=== PATIENT | female | born 1930 | race Two or more races ===

== ENCOUNTER 2017-04-28 02:11 | Inpatient (IN) | payer MEDICARE, OTHER ==
[~2017-04-28] VITALS: Ht 157.5 cm; Wt 46.3 kg
--- NOTE | 2017-04-28 02:15 | NUR ---
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 PER RA, ALBUTEROL GIVEN WITH RELIEF. UPON ARRIVAL TO ER, PATIENT IS ALERT, RESPONSIVE, MILD WHEEZING ON [place] LUNGS HEARD, SATTING AT 88-89% ON ROOM AIR. KEPT HOB ELEVATED. TELE MONITORING ON. ENCOURAGED DEEP BREATHING EXERCISES. HX OF COPD. GOWNED. INITIATED COMFORT MEASURES. DR CARREON AT BEDSIDE FOR EVAL.
[2017-04-28] MEDS ORDERED: ALBUTEROL FS 2.5 MG/3 ML VIAL.NEB NEB ONE (02:30)
[2017-04-28] MEDS ORDERED: IPRATROPIUM NEB FS 0.5 MG/2.5 ML AMPUL.NEB NEB ONE (02:30)
[2017-04-28] MEDS ORDERED: MAGN800O PO (02:34)
[2017-04-28] MEDS ORDERED: FERR-58 PO (02:34)
[2017-04-28] MEDS ORDERED: FLUD0.1T PO (02:34)
[2017-04-28] MEDS ORDERED: GUAI100S4 PO (02:34)
[2017-04-28] MEDS ORDERED: FURO20TA4 PO (02:34)
[2017-04-28] MEDS ORDERED: ACET-2067 PO (02:34)
[2017-04-28] MEDS ORDERED: FENO145T20 PO (02:34)
[2017-04-28] MEDS ORDERED: UMEC62.5 IH (02:34)
[2017-04-28] MEDS ORDERED: POTA10CA43 PO (02:34)
[2017-04-28] MEDS ORDERED: ESOM40CA PO (02:34)
[2017-04-28] MEDS ORDERED: METO-302 PO (02:34)
[2017-04-28] MEDS ORDERED: ALBU18HF2 INH (02:34)
[2017-04-28] MEDS ORDERED: IPRATROPIUM NEB FS 0.5 MG/2.5 ML AMPUL.NEB ONE (02:37)
[2017-04-28] MEDS ORDERED: ALBUTEROL FS 2.5 MG/3 ML VIAL.NEB ONE (02:37)
[2017-04-28 02:43] LABS: BASOPHILS # (AUTO) 0.1 /CMM (0.0-0.2); BASOPHILS % (AUTO) 0.7 % (0.0-2.0); EOSINOPHILS # (AUTO) 0.7 /CMM (0.0-0.7); HEMATOCRIT 45 % (33-45); HEMOGLOBIN 14.8 g/dL (11.5-14.8); LYMPHOCYTES # (AUTO) 2.2 /CMM (0.8-4.8); LYMPHOCYTES % (AUTO) 28.7 % (20.0-44.0); MEAN CORPUSCULAR HEMOGLOBIN 30 PG (26.0-33.0); MEAN CORPUSCULAR HGB CONC 33 g/dl (31.0-36.0); MEAN CORPUSCULAR VOLUME 93 fL (82-100); MONOCYTES # (AUTO) 0.7 /CMM (0.1-1.30); MONOCYTES % (AUTO) 9.4 % (2.0-12.0); NEUTROPHILS # (AUTO) 3.9 /CMM (1.8-8.9); NEUTROPHILS % (AUTO) 52.2 % (43.0-81.0); PLATELET COUNT (AUTO) 325 /CMM (150-450); RDW COEFFICIENT OF VARIATION 13.8 (11.5-15.0); RED BLOOD CELL COUNT(AUTO) 4.88 MIL/uL (4.0-5.2); WHITE BLOOD COUNT (AUTO) 7.6 K/uL (4.3-11.0)
--- NOTE | 2017-04-28 02:44 | NUR ---
RT AT BEDSIDE FOR BREATHING TX
--- NOTE | 2017-04-28 02:50 | NUR ---
JAVASCRIPT ENGINEER AT BEDSIDE FOR CXR.
[2017-04-28 02:53] LABS: CALCIUM, SERUM 9.5 mg/dL (8.5-10.1); CARBON DIOXIDE 31 mmol/L (21-32); CHLORIDE 101 mmol/L (98-107); GLUCOSE 100 mg/dL (74-106); POTASSIUM 3.6 mmol/L (3.5-5.1); SODIUM SERUM 140 mmol/L (136-145); UREA NITROGEN, BLOOD 25 mg/dL (7-18)
[2017-04-28 03:00] LABS: TROPONIN I 0.019 ng/mL (0.00-0.056)
[2017-04-28 03:05] LABS: ALANINE AMINOTRANSFERASE 15 U/L (12-78); ALBUMIN 3.5 g/dL (3.4-5.0); ALKALINE PHOSPHATASE 68 U/L (46-116); ASPARTATE AMINOTRANSFERASE 16 U/L (15-37); B-TYPE NATRIURETIC PEPTIDE 671 PG/ML (0-125); BILIRUBIN,DIRECT 0.1 mg/dL (0.0-0.2); BILIRUBIN,TOTAL 0.4 mg/dL (0.2-1.0); TOTAL PROTEIN, SERUM 7.4 g/dL (6.4-8.2)
[2017-04-28] MEDS ORDERED: ETOMIDATE 2 MG/ML VIAL ONE (03:37)
--- NOTE | 2017-04-28 03:49 | NUR ---
DR. CARREON AT BEDSIDE FOR LEFT CHEST TUBE PLACEMENT. RT AT BEDSIDE.
[2017-04-28] MEDS ORDERED: CEFAZOLIN 1 GM in IV D5W 50 ML IV ONE (04:00)
[2017-04-28] MEDS ORDERED: ONDANSETRON HCL/PF - ER 4 MG/2 ML VIAL IV ONE (04:00)
[2017-04-28] MEDS ORDERED: HYDROMORPHONE 1 MG/1 ML DISP.SYRIN IV ONE (04:00)
[2017-04-28] MEDS ORDERED: CEFAZOLIN 1 GM ONE (04:01)
[2017-04-28] MEDS ORDERED: IV SET PRIMARY PUMP SET 1 EA INFUS.SET MC ONE ×2 (04:01→15:59)
[2017-04-28] MEDS ORDERED: HYDROMORPHONE 1 MG/1 ML DISP.SYRIN ONE (04:01)
[2017-04-28] MEDS ORDERED: ONDANSETRON HCL/PF 4 MG/2 ML VIAL ONE (04:01)
--- NOTE | 2017-04-28 04:02 | NUR ---
PER DR. CARREON INSERTED LEFT CHEST TUBE. PT TOLERATED WELL. Addendum: 04/28/17 at 0419 by ZOË PER DR. CARREON INSERTED 20G LEFT SIDE CHEST TUBE
--- NOTE | 2017-04-28 04:03 | NUR ---
RT AT BEDSIDE FOR ABG.
--- NOTE | 2017-04-28 04:04 | NUR ---
PT ASSIGNED FOR ALISTAIR [id number]
--- NOTE | 2017-04-28 04:07 | NUR ---
dr emely raymond
--- NOTE | 2017-04-28 04:07 | NUR ---
CALLED RADIOLOGY FOR STAT CHEST XRAY
[2017-04-28] MEDS ORDERED: IV D5W 50 ML IV ONE (04:09)
[2017-04-28 04:11] LABS: ABG BASE EXCESS 2.8 mmol/L; ABG OXYGEN SATURATION 98.9 % (92.0-98.5); ABG PCO2 58.6 mmHg (35.0-45.0); ABG PH 7.332 (7.350-7.450); AaDO2 43.9 mmHg; COHb 2.9 % (0.5-1.5); MetHb 0.3 % (0.0-1.5); O2Hb 95.7 % (94.0-97.0); SITE, ABG Right Radial; VENT MODE, BG NRB
--- NOTE | 2017-04-28 04:12 | NUR ---
XRAY AT BEDSIDE.
--- NOTE | 2017-04-28 04:12 | NUR ---
WASTED REMAINING ETOMIDATE 5MG WITH HILDA CHINCHILLA
--- NOTE | 2017-04-28 04:15 | NUR ---
cxr at bedside.
--- NOTE | 2017-04-28 04:15 | NUR ---
0350 - etomidate 5mg ivp given pre chest tube placement under moderate sedation by Dr Weir at bedside. Ongoing tele and vs monitoring. safety maintained. kept hob of elevated, RT Rodrick at bedside. Patient was placed on 15lpm nonrebreather, ceasar well. 0351- another etomidate 5mg ivp given per Dr Weir's verbal order. 0357- last etomidate 5mg ivp given for a total of 15mg per Dr Weir verbal order. 0402 - chest tube placed on the left lateral wall inserted by Dr Weir, syriac 20, connected to water seal cannister and suction, dressing placed, no leaks noted. 0410 - patient woke up, vss. Reoriented. placed on 2lpm o2 nc, ceasar well. ongoing vs monitoring.
[2017-04-28] MEDS ORDERED: HYDROCODONE/APAP 5/325MG 1 EACH TABLET PO PRN (04:30)
[2017-04-28] MEDS ORDERED: ONDANSETRON HCL/PF 4 MG/2 ML VIAL IVP PRN (04:30)
[2017-04-28] MEDS ORDERED: Z GUARD REMEDY 2 OZ OINT TP PRN (04:30)
[2017-04-28] MEDS ORDERED: GUAIFENESIN 300 MG/15 ML UDC PO PRN (04:30)
[2017-04-28] MEDS ORDERED: ACETAMINOPHEN 325 MG TABLET PO PRN (04:30)
[2017-04-28] MEDS ORDERED: MAGNESIUM HYDROXIDE 30 ML UDC PO PRN (04:30)
[2017-04-28] MEDS ORDERED: MAG HYDROX/AL HYDROX/SIMETH 30 ML UDC PO PRN (04:30)
--- NOTE | 2017-04-28 04:35 | NUR ---
PT ASSIGNED TO [place] [id number]
--- NOTE | 2017-04-28 04:40 | NUR ---
Report given to Layla STEVENS for nusrat admission and niles.
[2017-04-28 05:49] VITALS: BP 139/64
--- NOTE | 2017-04-28 07:08 | NUR ---
PT ADMITTED FROM ER WITH THE DX OF PNEUMOTHORAX VIA NICKY @ 4005 . PT IS A/O X 2 , FORGETFULNESS , DEMENTIC , BREATHING UNLABORED ON 3 LPM VIA NC . SHOWING SR WITH 1 DEGREE AV BLOCK AND BBB ON TELE MONITOR . LFA AND RFA 18 G INTACT AND PATENT . PT IS INCONTINENT , BED IN THE LOWEST/LOCKED POSITION. SAFETY MEASURES APPLIED. ALL ADMISSION ASSESSMENT DONE . SKIN ASSESSMENT DONE , BELONGINGS CHECKED. DENIED ANY PAIN AT THIS TIME . ENDORSED TO NEXT SHIFT RN FOR CONTINUITY OF CARE.
--- NOTE | 2017-04-28 07:30 | NUR ---
RN NOTES RECEIVED PT IN BED, ON UPRIGHT SITTING POSITION. PT IS ON O2@3LPM VIA NC AT THIS TIME. PT IS AWAKE ALERT ORIENTED TO NAME, NOTED WITH SOME CONFUSION AND FORGETFULNESS. SR WITH 1ST DEGREE AV BLOCK ON TELE MONITOR. PT HAS LEFT CHEST WATER SEAL CHEST TUBE NOTED WITH MINIMAL AMOUNT OF REDDISH COLOR DRAINAGE, ON CONTINUOS SUCTION AT 80MMHG. PTY NOTED PULLED OUT HER LEFT FA IV SITE, CLEAN DRESSING APPLIED. IV PATENT ON R FA, FLUSHED WITH S, PATENT. SAFETY MAINTAINED. FREQUENT VISUAL CHECKS MADE. NEEDS ATTENDED. CALL LIGHT WITHIN REAC.H
[2017-04-28 08:00] VITALS: BP 142/75
[2017-04-28] MEDS: FENOFIBRATE NANOCRYS (145 MG) 145 MG TABLET PO SCH (08:48)
[2017-04-28] MEDS ORDERED: FLUDROCORTISONE 0.1 MG TABLET PO SCH (09:00)
[2017-04-28] MEDS ORDERED: POTASSIUM CHLORIDE 10 MEQ TABLET.SA PO SCH (09:00)
[2017-04-28] MEDS ORDERED: FUROSEMIDE 20 MG TABLET PO SCH (09:00)
[2017-04-28] MEDS ORDERED: FERROUS SULFATE (325 MG) 325 MG/TAB TABLET PO SCH (09:00)
[2017-04-28] MEDS ORDERED: METOPROLOL SUCCINATE 25 MG TAB.SR.24H PO SCH (09:00)
[2017-04-28] MEDS ORDERED: IV NS 0.9% 1,000 ML IV PRN (10:53)
[2017-04-28 12:00] VITALS: BP 134/65
--- NOTE | 2017-04-28 12:15 | NUR ---
RN NOTES PT IN BED, UPRIGHT SITTING POSITION. PT VERBALIZED HAVING TROUBLE BREATHING. O2 SAT NOTED 85-87% ON O2 @3LPM VIA NC. CHECKED CHEST TUBE FOR ANY KINKS IR LEAKS, NONE NOTED. DR WALTERS MADE AWARE OF CURRENT PT'S CONDITION, PER MD TO PUT PT ON O2 VIA SIMPLE MASK AND ORDER STAT CXR.
[2017-04-28] MEDS ORDERED: methylPREDNISolone SOD SUCC 40 MG/ML VIAL IV STA (12:20)
[2017-04-28] MEDS: ALBUTEROL FS 2.5 MG/3 ML VIAL.NEB NEB PRN ×2 (12:25→22:41)
--- NOTE | 2017-04-28 12:30 | NUR ---
RN NOTES DR WALTERS AT BEDSIDE, PT WAS SEEN AND EVALUATED. PT STILL VERBALIZING OF TROUBLE BREATHING, PER MD TO GIVE BREATHING TX NOW ALBUTEROL AND ATROVENT. AND SOLUMEDROL 40MG NOW. RT AT BEDSIDE
[2017-04-28 16:00] VITALS: BP 118/63
--- NOTE | 2017-04-28 19:30 | NUR ---
RN NOTES RECEIVED PT AOX 2 WITH CONFUSION AND EASILY FORGET.. ABLE TO MAKE KNOWN NEEDS. DENIES PAIN AT THIS TIME. AFEBRILE. NO ACUTE RESP DISTRESS TOLERATED O2 3LPM VIA NC AND LEFT LATERAL CHEST TUBE SUCTIONED @ 80MMHG FROM WATER SEAL WITH REDDISH COLOR DRAINAGE INTACT, KEPT VISIBLE AND PATENT COVERED WITH DRESSING. IV SITE ON RFA G18 INTACT AND PATENT/ PLAN OF CARE PROVIDED. KEPT PT CLEAN AND COMFORTABLE IN BED. WILL MONITORED FREQ.
[2017-04-28 20:00] VITALS: BP 108/61
--- NOTE | 2017-04-28 22:56 | NUR ---
RN NOTES PT HAD EPISODE OF DESATURATION TO 85% PT COMPALINING OF PAIN ON CHEST TUBE AREA NON REBREATHER MASK PLACED PT SATURATION STARTED TO INCREASED AND SUBSIDING SOB. RT GAVE PRN BREATHING TX. AND DR. LYNN ON THE FLOOR INFORMED WITH ORDER ATROVENT AND ALBUTEROL Q4H PRN. PT SATURATION STABLE NOW @ 97%. WILL MONITORED FREQ.
[2017-04-28] MEDS: ZOLPIDEM TARTRATE 5 MG TABLET PO PRN (23:20)
[2017-04-29] VITALS: BP 105/68
[2017-04-29 04:00] VITALS: BP 134/65
[2017-04-29 06:56] LABS: TROPONIN I 0.024 ng/mL (0.00-0.056)
[2017-04-29 06:58] LABS: BASOPHILS % (AUTO) 0.2 % (0.0-2.0); EOSINOPHILS # (AUTO) 0.2 /CMM (0.0-0.7); EOSINOPHILS % (AUTO) 2.7 % (0.0-6.0); HEMATOCRIT 41 % (33-45); HEMOGLOBIN 13.4 g/dL (11.5-14.8); LYMPHOCYTES # (AUTO) 1.8 /CMM (0.8-4.8); LYMPHOCYTES % (AUTO) 24.3 % (20.0-44.0); MEAN CORPUSCULAR HEMOGLOBIN 31 PG (26.0-33.0); MEAN CORPUSCULAR HGB CONC 33 g/dl (31.0-36.0); MEAN CORPUSCULAR VOLUME 93 fL (82-100); MONOCYTES # (AUTO) 0.9 /CMM (0.1-1.30); MONOCYTES % (AUTO) 12.3 % (2.0-12.0); NEUTROPHILS # (AUTO) 4.5 /CMM (1.8-8.9); NEUTROPHILS % (AUTO) 60.5 % (43.0-81.0); PLATELET COUNT (AUTO) 305 /CMM (150-450); RDW COEFFICIENT OF VARIATION 13.5 (11.5-15.0); RED BLOOD CELL COUNT(AUTO) 4.36 MIL/uL (4.0-5.2); WHITE BLOOD COUNT (AUTO) 7.4 K/uL (4.3-11.0)
[2017-04-29 07:01] LABS: ALANINE AMINOTRANSFERASE 12 U/L (12-78); ALBUMIN 2.9 g/dL (3.4-5.0); ALKALINE PHOSPHATASE 49 U/L (46-116); ASPARTATE AMINOTRANSFERASE 17 U/L (15-37); BILIRUBIN,TOTAL 0.4 mg/dL (0.2-1.0); CALCIUM, SERUM 9.3 mg/dL (8.5-10.1); CARBON DIOXIDE 35 mmol/L (21-32); CHLORIDE 103 mmol/L (98-107); CREATININE 0.8 mg/dL (0.6-1.3); GLUCOSE 86 mg/dL (74-106); MAGNESIUM 1.6 mg/dL (1.8-2.4); PHOSPHORUS 3.4 mg/dL (2.5-4.9); POTASSIUM 3.9 mmol/L (3.5-5.1); SODIUM SERUM 141 mmol/L (136-145); TOTAL PROTEIN, SERUM 6.5 g/dL (6.4-8.2); UREA NITROGEN, BLOOD 21 mg/dL (7-18)
--- NOTE | 2017-04-29 07:01 | NUR ---
RN NOTES PT NOTED WITH EPISODE OF ANXIETY WHEN AWAKE. RESTLESSNESS AND DESATURATING SHOWS. NON REBREATHER MASK 15LPM VIA NC EFFECTIVE, PT STARTED TO CALM DOWN AND PLACED BACK AGAIN TO O2 3LPM VIA NC TOLERATED WELL FOR AWHILE BUT STARTED TO DESAT AGAIN KEPT NON REBREATHER MASK ON @ 10 LPM SATING 95%. PT IS ON UPRIGHT POSITION FOR COMFORTABLE. CHEST TUBE DRAINED WITH REDDISH COLOR 15 CC THROUGHOUT THE SHIFT. WILL ENDORSED CONTINUITY OF CARE TO AM NURSE.
[2017-04-29 07:05] LABS: CHOLESTEROL 148 mg/dL (<200); HDL CHOLESTEROL 50 mg/dL (40-60); TRIGLYCERIDES 52 mg/dL (30-150)
[2017-04-29 07:18] LABS: LDL 80 mg/dL (0-99)
[2017-04-29] MEDS: ALBUTEROL FS 2.5 MG/0.5 ML VIAL.NEB NEB PRN (07:38)
[2017-04-29] MEDS: IPRATROPIUM NEB FS 0.5 MG/2.5 ML AMPUL.NEB NEB PRN (07:38)
[2017-04-29 08:00] VITALS: BP 141/68
--- NOTE | 2017-04-29 09:20 | NUR ---
RN NOTES PT NOTED WITH C/O SHORTNESS OF BREATH, CURRENTLY ON O2@3LPM VIA NC SATING 85%, PUT PT ON SIMPLE MASK 6LPM STILL SATING 85%, PLACED ON NRB 15LPM SATING 88%. REPORTED TO DR ELLIS, PER STAT ABG AND NOTIFY DR SHELTON
[2017-04-29] MEDS: PANTOPRAZOLE 40 MG TABLET.DR PO SCH (09:36)
[2017-04-29] MEDS: Magnesium 1GM/D5W 100ML PREMIX 100 ML IV SCH ×2 (09:36→11:32)
[2017-04-29] MEDS: FENOFIBRATE NANOCRYS (145 MG) 145 MG TABLET PO SCH (09:36)
[2017-04-29 10:01] LABS: ABG BASE EXCESS 4.7 mmol/L; ABG OXYGEN SATURATION 97.7 % (92.0-98.5); ABG PCO2 52.6 mmHg (35.0-45.0); ABG PH 7.387 (7.350-7.450); ABG PO2 117.8 mmHg (75.0-100.0); AaDO2 397.4 mmHg; COHb 0.9 % (0.5-1.5); MetHb 0.7 % (0.0-1.5); O2Hb 96.1 % (94.0-97.0); SITE, ABG Left Radial; VENT MODE, BG N/B
[2017-04-29 12:00] VITALS: BP 125/65
[2017-04-29 16:00] VITALS: BP 129/62
--- NOTE | 2017-04-29 19:30 | NUR ---
RN NOTES RECEIVED PATIENT IN BED AWAKE, AO X 2, ABLE TO MAKE NEEDS KNOWN. NO ACUTE DISTRESS NOTED. TELE READING SR WITH BB AND 1ST DEGREE. PATIENT TAKES OFF O2 MASK; REMINDED TO KEEP ON. IV SITE PULLED OUT; WILL REPLACE; CHEST TUBE PATENT, INTACT; DRAINING SEROSANGUINOUS FLUID. ON LOW BED WITH BILATERAL UPPER SIDE RAILS UP AND BED ALARM ON. CALL LIGHT WITHIN EASY REACH. WILL CONTINUE TO MONITOR.
[2017-04-29 20:00] VITALS: BP 112/63
[2017-04-29] MEDS: ZOLPIDEM TARTRATE 5 MG TABLET PO PRN (21:49)
[2017-04-30] VITALS: BP 158/79
[2017-04-30 04:00] VITALS: BP 156/73
--- NOTE | 2017-04-30 05:05 | NUR ---
RN NOTES DR. BORJA MADE AWARE THAT PATIENT PULLED OUT CHEST TUBE; NO BLEEDING NOTED; PREVIOUS CHEST XRAY SAYS NO PNEUMOTHORAX. MD ORDERED FOR PRESSURE DRESSING AND CHEST XRAY, NOTED AND CARRIED OUT.
--- NOTE | 2017-04-30 06:27 | NUR ---
RN NOTES PATIENT AWAKE. RESPIRATIONS EVEN. NO SIGNS OF PAIN NOTED. PATIENT HAS BEEN TAKING OFF O2 MASK, IV, AND TELE LEADS ALL SHIFT. REASSURANCE AND SAFETY REMINDERS GIVEN MANY TIMES. SAFETY PRECAUTIONS AND COMFORT MEASURES IN PLACE. WILL GIVE REPORT TO DAY SHIFT FOR CONTINUITY OF CARE.
--- NOTE | 2017-04-30 06:35 | NUR ---
RN NOTES PATIENT TOOK OF TELE LEADS AGAIN; REFUSING TO BE REAPPLIED. TELE PUT ON STANDBY. WILL ENDORSE TO NEXT SHIFT.
--- NOTE | 2017-04-30 06:45 | NUR ---
RN SPOKE TO MD LANGSTON. AWARE PT PULLED OUT CHEST TUBE, WITH ORDER SITTER 1:1. NURSING TRASH HAULER AWARE
--- NOTE | 2017-04-30 06:53 | NUR ---
RN NOTES DR. BORJA PAGED FOR CHEST XRAY RESULT. WAITING FOR CALL BACK.
--- NOTE | 2017-04-30 07:08 | NUR ---
RN NOTES RELAYED CHEST X RAY REPORT TO DR. BORJA WITH ORDER TO RELAY TO ASSIGNED MD FOR TODAY. WILL ENDORSE TO DAY SHIFT.
--- NOTE | 2017-04-30 07:15 | NUR ---
RN INITIAL NOTE PT RECEIVED IN BED, RESTING. EASILY AROUSED, ORIENTED. ABLE TO MAKE NEEDS KNOWN. PATIENT CONTINUES TO REMOVE TELE LEADS. RESPIRATIONS ARE EVEN AND UNLABORED. NO S/S OF SOB OR RESPIRATORY DISTRESS. SATING WELL ON 6L NASAL CANULA. PATIENT DOES NOT HAVE IV SITE . SKIN IS WARM AND DRY TO TOUCH. SAFETY PRECAUTIONS IN PLACE, BED IN LOW, LOCKED POSITION WITH TWO SIDE RAILS UP. SITTER AT BEDSIDE. CALL LIGHT AND BELONGINGS WITHIN EASY REACH. WILL MONITOR CLOSELY.
[2017-04-30 07:54] LABS: BASOPHILS % (AUTO) 0.4 % (0.0-2.0); EOSINOPHILS # (AUTO) 0.3 /CMM (0.0-0.7); EOSINOPHILS % (AUTO) 3.5 % (0.0-6.0); HEMATOCRIT 45 % (33-45); HEMOGLOBIN 14.9 g/dL (11.5-14.8); LYMPHOCYTES # (AUTO) 1.5 /CMM (0.8-4.8); LYMPHOCYTES % (AUTO) 16.9 % (20.0-44.0); MEAN CORPUSCULAR HEMOGLOBIN 31 PG (26.0-33.0); MEAN CORPUSCULAR HGB CONC 33 g/dl (31.0-36.0); MEAN CORPUSCULAR VOLUME 92 fL (82-100); MONOCYTES # (AUTO) 0.9 /CMM (0.1-1.30); MONOCYTES % (AUTO) 9.9 % (2.0-12.0); NEUTROPHILS # (AUTO) 6.2 /CMM (1.8-8.9); NEUTROPHILS % (AUTO) 69.3 % (43.0-81.0); PLATELET COUNT (AUTO) 326 /CMM (150-450); RDW COEFFICIENT OF VARIATION 13.4 (11.5-15.0); RED BLOOD CELL COUNT(AUTO) 4.84 MIL/uL (4.0-5.2); WHITE BLOOD COUNT (AUTO) 8.9 K/uL (4.3-11.0)
[2017-04-30 08:00] VITALS: BP 135/81
[2017-04-30 08:09] LABS: ALANINE AMINOTRANSFERASE 14 U/L (12-78); ALBUMIN 3.1 g/dL (3.4-5.0); ALKALINE PHOSPHATASE 54 U/L (46-116); ASPARTATE AMINOTRANSFERASE 17 U/L (15-37); BILIRUBIN,TOTAL 0.5 mg/dL (0.2-1.0); CALCIUM, SERUM 9.4 mg/dL (8.5-10.1); CARBON DIOXIDE 35 mmol/L (21-32); CHLORIDE 101 mmol/L (98-107); CREATININE 0.7 mg/dL (0.6-1.3); GLUCOSE 95 mg/dL (74-106); MAGNESIUM 2.1 mg/dL (1.8-2.4); PHOSPHORUS 2.3 mg/dL (2.5-4.9); POTASSIUM 4.4 mmol/L (3.5-5.1); SODIUM SERUM 137 mmol/L (136-145); TOTAL PROTEIN, SERUM 6.9 g/dL (6.4-8.2); UREA NITROGEN, BLOOD 18 mg/dL (7-18)
[2017-04-30] MEDS: ALBUTEROL FS 2.5 MG/0.5 ML VIAL.NEB NEB PRN ×3 (08:10→15:34)
[2017-04-30] MEDS: IPRATROPIUM NEB FS 0.5 MG/2.5 ML AMPUL.NEB NEB PRN ×3 (08:10→15:34)
[2017-04-30] MEDS: PANTOPRAZOLE 40 MG TABLET.DR PO SCH (09:45)
[2017-04-30] MEDS: FENOFIBRATE NANOCRYS (145 MG) 145 MG TABLET PO SCH (09:45)
[2017-04-30] MEDS: NEUTRA PHOS 1 POWD.PACKET PO SCH ×2 (13:18→17:45)
[2017-04-30 16:00] VITALS: BP 121/61
[2017-04-30] MEDS: ZOLPIDEM TARTRATE 5 MG TABLET PO PRN (21:33)
--- NOTE | 2017-04-30 21:33 | NUR ---
ms/rn notes patient medicated with ambien 1 tab as ordered. will continue to monitor. fall precautions rendered.
[2017-05-01 00:57] VITALS: BP 130/61
--- NOTE | 2017-05-01 06:58 | NUR ---
MS RN NOTES PATIENT REMIAN IN STABLE CONDITION. PT AOX 2 WITH CONFUSION AND EASILY FORGET.. ABLE TO MAKE KNOWN NEEDS. DENIES PAIN AT THIS TIME. AFEBRILE. NO ACUTE RESP DISTRESS TOLERATED O2 3LPM VIA NC . DRESSING CHANGED TO LEFT SIDE OF CHEST. NO IV ACCESS. MD AWARE . CONTINUE PLAN OF CARE PROVIDED. KEPT PT CLEAN AND COMFORTABLE IN BED. WILL ENDORSE ACCORDINGLY FOR CONTINUITY OF CARE.
[2017-05-01 08:00] VITALS: BP 131/74
[2017-05-01] MEDS: FENOFIBRATE NANOCRYS (145 MG) 145 MG TABLET PO SCH (08:42)
[2017-05-01] MEDS: PANTOPRAZOLE 40 MG TABLET.DR PO SCH (08:42)
[2017-05-01 09:06] LABS: ABG BASE EXCESS 2.8 mmol/L; ABG OXYGEN SATURATION 85.1 % (92.0-98.5); ABG PCO2 40.6 mmHg (35.0-45.0); ABG PH 7.442 (7.350-7.450); ABG PO2 49.9 mmHg (75.0-100.0); AaDO2 51.2 mmHg; COHb 1.5 % (0.5-1.5); MetHb 0.6 % (0.0-1.5); O2Hb 83.3 % (94.0-97.0); SITE, ABG Right Radial; VENT MODE, BG ROOM AIR
[2017-05-01 16:00] VITALS: BP 122/59
[2017-05-01 20:00] VITALS: BP 140/75
--- NOTE | 2017-05-01 20:40 | NUR ---
RN INITIAL NOTE PT RECEIVED IN BED, BREATHING MASK DUE TO C/O OF SOB, ORIENTED. ABLE TO MAKE NEEDS KNOWN. RESPIRATIONS ARE EVEN AND UN LABORED AT THIS TIME O2 SAT AT 93% SATING WELL ON 6L ON MASK. PATIENT DOES NOT HAVE IV SITE . SKIN IS WARM AND DRY TO TOUCH. SAFETY PRECAUTIONS IN PLACE, BED IN LOW, LOCKED POSITION WITH TWO SIDE RAILS UP. SITTER AT BEDSIDE. CALL LIGHT AND BELONGINGS WITHIN EASY REACH. WILL MONITOR CLOSELY.
[2017-05-02] VITALS: BP 135/70
--- NOTE | 2017-05-02 06:09 | NUR ---
RN CLOSING NOTES PT ENDORSED IN BED, ON NC @ 3L, WELL TOLERATED , ORIENTED. ABLE TO MAKE NEEDS KNOWN. RESPIRATIONS ARE EVEN AND UN LABORED AT THIS TIME O2 SAT AT 93% SATING WELL ON 6L ON MASK. PATIENT DOES NOT HAVE IV SITE . SKIN IS WARM AND DRY TO TOUCH. SAFETY PRECAUTIONS IN PLACE, BED IN LOW, LOCKED POSITION WITH TWO SIDE RAILS UP. SITTER AT BEDSIDE. CALL LIGHT AND BELONGINGS WITHIN EASY REACH. WILL MONITOR CLOSELY.
--- NOTE | 2017-05-02 07:41 | NUR ---
INITIAL MS RN NOTE RCVD PT AWAKE AND ALERT SHOWING NO S/O DISTRESS OR C/O PAIN AT THIS TIME. TOLERATING O2 VIA NC. NO IV ACCESS OBSERVED. PER REPORT AWARE. WILL CONTINUE TO MONITOR PT FOR SAFETY AND COMFORT. CALL LIGHT WITHIN REACH, BED IN LOW AND LOCKED POSITION. SITTER AT BEDSIDE FOR SAFETY.
[2017-05-02 08:00] VITALS: BP 121/57
[2017-05-02] MEDS: FENOFIBRATE NANOCRYS (145 MG) 145 MG TABLET PO SCH (08:02)
[2017-05-02] MEDS: PANTOPRAZOLE 40 MG TABLET.DR PO SCH (08:02)
[2017-05-02 16:00] VITALS: BP 115/51
--- NOTE | 2017-05-02 16:47 | NUR ---
FINAL MS RN NOTE PT D/Cd TO [facility] VIA AMBULANCE. VITAL SIGNS STABLE. BELONGINGS TRANSPORTED WITH PT. PT WASHED PRIOR TO TRANSPORT. PICTURE TAKEN PER PROTOCOL. REPORT CALLED TO FACILITY AND GIVEN TO AISHA. PT'S FAMILY, YOSHI (DAUGHTER IN LAW) INFORMED OF PT'S D/C. Addendum: 05/02/17 at 1728 by LUH QUAN RN AISHA WAS INFORMED THAT PT IS RECEIVING O2 DURING REPORT. NO OBJECTIONS TO RECEIVING PT DUE TO THIS CONDITION.
--- NOTE | 2017-05-02 18:26 | NUR ---
MS RN NOTE PT RETURNED FROM FACILITY, CUSTODIAL UNABLE TO PROVIDE O2 IN PREMISES. MARKIE, WORKFORCE ANALYST INFORMED. PER MARKIE, HE'LL CALL BACK PT'S DAUGHTER IN LAW, YOSHI TO INFORMED HER OF PT BEING BROUGHT BACK AND POSSIBILITY OF SNIF PLACEMENT DUE TO O2 NEEDS. Addendum: 05/02/17 at 1831 by LUH QUAN RN PT AWAKE AND ALERT, REMAINS STABLE.
[2017-05-02 20:00] VITALS: BP 117/81
[2017-05-03 04:00] VITALS: BP 110/64
--- NOTE | 2017-05-03 07:30 | NUR ---
initial note received patient resting in bed, a+ox2-3. verbalizing needs. breathing even and unlabored on 5L NC. denies pain. no IV access, per report, aware. plan of care to discharge to board and care with oxygen, showcase trimmer active in care. call light in reach
[2017-05-03 08:00] VITALS: BP 108/55
[2017-05-03] MEDS: FENOFIBRATE NANOCRYS (145 MG) 145 MG TABLET PO SCH (08:21)
[2017-05-03] MEDS: PANTOPRAZOLE 40 MG TABLET.DR PO SCH (08:22)
[2017-05-03 12:00] VITALS: BP 108/55
[2017-05-03 16:00] VITALS: BP 111/57
--- NOTE | 2017-05-03 18:42 | NUR ---
RN NOTE PATIENT DUE FOR DISCHARGE. PER MANAGER NEONATAL JUAN, PATIENT WILL BE PICKED UP AFTER CONFIRMATION OF HER BOARD AND CARE RECEIVING THE OXYGEN CONCENTRATOR. PATIENT ON 5L NC O2 SAT 90-94%, DR. WALTERS AWARE. GAVE REPORT TO IZZY NURSE AT [facility].
--- NOTE | 2017-05-03 19:35 | NUR ---
MS/RN NOTES RECEIVED PT. SITTING UP IN BED. AWAKE, ALERT AND ORIENTED X2. BREATHING EVEN AND UNLABORED ON 5LPM O2 VIA NC. NO SOB, RESPIRATORY DISTRESS OR COMPLAINTS OF PAIN NOTED AT THIS TIME. PT. WITH NO IV ACCESS MD AWARE. PER DAYSHIFT NURSE PT. IS WAITING TO BE DISCHARGED. PER DAYSHIFT NURSE REPORT WAS CALLED AND GIVEN TO IZZY AT THE BOARD AND CARE. PER DAYSHIFT CRUSHER SUPERVISOR JUAN STATED PT. WILL BE DISCHARGED ONCE WE RECEIVE CONFIRMATION FROM PT. BOARD AND CARE THAT HER OXYGEN CONCENTRATOR WAS RECEIVED. BED IN LOWEST POSITION, CALL LIGHT WITHIN REACH, WILL CONTINUE TO MONITOR.
--- NOTE | 2017-05-03 21:25 | NUR ---
MS/RN NOTES CHARGE NURSE RECEIVED CALL FROM [facility] BOARD AND [facility] STATING THEY RECEIVED THE PT. OXYGEN CONCENTRATOR. CHARGE NURSE CALLED AMBULANCE FOR TRANSPORT. AMBULANCE STATED ETA 30 MIN. PT. IN STABLE CONDITION AND APPEARS COMFORTABLE AT THE MOMENT. WILL CONTINUE TO MONITOR.
--- NOTE | 2017-05-03 21:54 | NUR ---
MS/RN NOTES AMBULANCE ARRIVED TO TAKE PT. TO BOARD AND CARE. PT. IS A LITTLE ANXIOUS AND HAS INCREASED RESPIRATORY RATE OF 30 BREATHS PER MINUTE. EDUCATED PT. ON IMPORTANCE OF DEEP BREATHING AND RELAXATION. PT. VERBALIZED UNDERSTANDING. CHARGE NURSE CALLED BOARD AND CARE TO NOTIFY THEM OF PT. STABLE VITAL SIGNS, O2 SAT 94% ON 5LPM O2 BUT HAS INCREASED RESPIRATORY RATE DUE TO ANXIETY. PER BOARD AND CARE OK FOR PT. TO ARRIVE. PT. EXITCARE COMPLETED PER DAYSHIFT NURSE SIGNED AND PLACED IN PT. CHART. COPY PROVIDED TO EMT FOR FACILITY. PT. IN STABLE CONDITION. PT. LEFT THE FLOOR AT 2154 WITH PORTABLE OXYGEN TANK ACCOMPANIED BY EMT.
== END 2017-05-03 23:30 | DRG 199 ==
LOC: ER 02:12 → TELE-TD 04:23 → TELE1 11:15 → MEDSG1 04-30 08:49
PROVIDERS: ADMIT Family Medicine; ATTEND Family Medicine
PROC: 0W9B00Z Drainage of Left Pleural Cavity with Drainage Device, Open Approach (ICD-10-PCS; principal; 2017-04-28)
DX: J93.83 Other pneumothorax (principal); J96.21 Acute and chronic respiratory failure with hypoxia; I50.32 Chronic diastolic (congestive) heart failure; J44.9 Chronic obstructive pulmonary disease, unspecified; I11.0 Hypertensive heart disease with heart failure; I25.10 Atherosclerotic heart disease of native coronary artery without angina pectoris; Z88.0 Allergy status to penicillin; F17.200 Nicotine dependence, unspecified, uncomplicated; K21.9 Gastro-esophageal reflux disease without esophagitis; F03.90 Unspecified dementia, unspecified severity, without behavioral disturbance, psychotic disturbance, mood disturbance, and anxiety; G89.29 Other chronic pain; E86.0 Dehydration; E83.42 Hypomagnesemia; Z66 Do not resuscitate; E83.39 Other disorders of phosphorus metabolism
CPT/HCPCS: 32551; 36415; 36600; 71010-TC; 80048-TC; 80053-TC; 80061-TC; 80076-TC; 83605-TC; 83735-TC; 83880; 84100-TC; 84484-TC; 85025-TC; 85378-TC; 87040-TC; 87081-TC; 87400; 93307-TC; 94799-TC; A4606; A6402; J0690; J1170; J2405; J2920; J3475; J3490; J7030; J7060; Z7610

== ENCOUNTER 2017-05-15 16:33 | Emergency (ER) | payer MEDICARE, OTHER ==
[~2017-05-15] VITALS: Ht 152.4 cm; Wt 52.2 kg
[~2017-05-15 16:33] MED LIST: ACET-2067 PO; ALBU18HF2 INH; ESOM40CA PO; FENO145T20 PO; FERR-58 PO; FLUD0.1T PO; FURO20TA4 PO; GUAI100S4 PO; MAGN800O PO; POTA10CA43 PO; UMEC62.5 IH
[2017-05-15 16:43] VITALS: BP 134/77
--- NOTE | 2017-05-15 18:32 | NUR ---
CALLED [facility] FOR TRANSPORT BACK TO FACILITY. ETA 1 HOUR
--- NOTE | 2017-05-15 19:25 | NUR ---
[facility], SHE SAID IT WILL BE 20 MORE MINUTES
--- NOTE | 2017-05-15 20:19 | NUR ---
[facility] AMB[facility]ANCE AT BEDSIDE FOR TRANSPORT.
== END 2017-05-15 20:22 ==
LOC: ER 16:35
DX: S21.112D Laceration without foreign body of left front wall of thorax without penetration into thoracic cavity, subsequent encounter (principal); G89.29 Other chronic pain; I10 Essential (primary) hypertension; I25.10 Atherosclerotic heart disease of native coronary artery without angina pectoris; I70.0 Atherosclerosis of aorta; J44.9 Chronic obstructive pulmonary disease, unspecified; K21.9 Gastro-esophageal reflux disease without esophagitis; Z46.82 Encounter for fitting and adjustment of non-vascular catheter; Z88.0 Allergy status to penicillin; F17.200 Nicotine dependence, unspecified, uncomplicated
CPT/HCPCS: 71010; 99283; A4606; Z7610